=== PATIENT | female | born 1970 | race Caucasian/White ===

== ENCOUNTER 2019-05-12 07:00 | Observation (INO) ==
--- NOTE | 2019-05-05 10:55 | Anesthesiology Consultation ---
Date of Service May 05, 2019 Assessment & Plan (1) Encounter for pre-operative examination: Chart Review Chart Review: Acceptable Risk for Surgery and Patient NOT seen in Pre Admission Testing Consults Requested none History Surgery Operation Date: 05/12/19 07:00 Proposed Procedures p Laparoscopic Cholecystectomy with Possible Cholangiogram - Didier Cleveland MD, FACS Height/Weight Height: 5 ft 5 in Weight: 65.771 kg Allergies Allergy/AdvReac Type Severity Reaction Status Date / Time lisinopril AdvReac Mild Cough Verified 04/14/19 13:32 Medications Home Medications Medication Instructions Recorded Confirmed Last Taken Testosterone 1 tab PO HS 04/14/19 04/14/19 Unknown estradiol 0.025 mg TOPICAL UD 04/14/19 04/14/19 Unknown folic acid 1 mg PO QAM 04/14/19 04/14/19 Unknown omeprazole 20 mg PO QAM 04/14/19 04/14/19 Unknown Past Medical History Medical History Barretts esophagus GERD (gastroesophageal reflux disease) History of bronchitis Hypertension was on lisinopril until d/c due to cough no medications at present Osteoarthritis lower back Past Family History Family History Grandmother Diabetes Heart disease Father Hypertension Cancer Brother Hypertension Past Surgical History Surgical History H/O section 1990 H/O tubal ligation 1990 Hx of colonoscopy Hx of esophagogastroduodenoscopy S/P sinus surgery Status post total replacement of hip right 2014 Social History Smoking Status: Current every day smoker tobacco type: cigarettes Smoking cigarettes per day: 1/2 ppd Do You Dip or Chew Tobacco: No Hx Alcohol Use: Yes Alcohol type: wine alcohol intake frequency: 0-2 drinks per day Hx Substance Use: No substance use type: does not use Testing Laboratory Results Laboratory Tests 05/02/19 05/02/19 05/02/19 12:47 12:47 12:47 WBC 14.98 H Hgb 14.6 Hct 43.2 Plt Count 265 PT 11.4 INR 1.1 Sodium 137 Potassium 3.8 Chloride 106 Carbon Dioxide 24 BUN 9 Creatinine 0.99 Glucose 160 H Electrocardiogram Date: 05/02/19 Findings: + NSR @ and + NSST changes
--- NOTE | 2019-05-12 06:17 | History & Physical Report ---
Date of Service May 12, 2019 Assessment & Plan (1) Chronic cholecystitis: for laparoscopic cholecystectomy, possible cholangiogram [facility], possible observation History of Present Illness Primary Care Provider: Marlene Boyle MD pt with recurrent RUQ pain u/s- distended gb with mult gallstones recent EUS- no significant abnormal findings Allergies Allergy/AdvReac Type Severity Reaction Status Date / Time lisinopril AdvReac Mild Cough Verified 05/12/19 07:11 Home Medications Home Medications Medication Instructions Recorded Confirmed Type Testosterone 1 tab PO HS 04/14/19 05/12/19 History estradiol 0.025 mg TOPICAL UD 04/14/19 05/12/19 History folic acid 1 mg PO QAM 04/14/19 05/12/19 History omeprazole 20 mg PO QAM 04/14/19 05/12/19 History Past Med/Surg History Medical History Barretts esophagus GERD (gastroesophageal reflux disease) History of bronchitis Hypertension was on lisinopril until d/c due to cough no medications at present Osteoarthritis lower back Surgical History H/O section 1990 H/O tubal ligation 1990 Hx of colonoscopy Hx of esophagogastroduodenoscopy S/P sinus surgery Status post total replacement of hip right 2014 Family History Grandmother Diabetes Heart disease Father Hypertension Cancer Brother Hypertension Social History (Updated 04/02/19 @ 11:14 by Shelli Hunt RN) Preferred Language: [place]atian Communication Ability: Effective Butcher Head Required: No Beliefs That Will Affect Care: None marital status: Current Living Situation: Spouse Other Information That Helps Us Care for You: No Feels Safe at Home: Yes Safety Concerns: Feels Safe At This Time Smoking Status: Current every day smoker Tobacco Type: cigarettes ; Cigarettes Per Day: 1/2 ppd ; Do You Dip or Chew Tobacco: No ; Second Hand Exposure: No ; Tobacco Cessation Education Requested by Patient: No Hx Alcohol Use: Yes Alcohol type: wine Hx Substance Use: No Review of Systems All systems reviewed & are unremarkable except as noted in HPI & below Physical Exam Physical Exam: mild abd distention, soft, minimal tenderness Constitutional: well developed and well nourished; no acute distress Eyes: + anicteric sclerae Respiratory: normal respiratory effort; no respiratory distress Cardiovascular: Rate/Rhythm: regular rate Gastrointestinal (Abdomen): Percussion/Palpation: abdomen soft Musculoskeletal: Gait: normal gait Skin: no rashes, warm and dry Neurologic: awake Psychiatric: Orientation: alert
[~2019-05-12 07:00] MED LIST: LR 15ML/HR IV SCH; cefUROXime 1,500 MG in DEXTROSE 5% 100 ML IV SCH
[2019-05-12] MEDS ORDERED: ePHEDrine sulfate 50 MG/ML AMP ONE (07:06)
[2019-05-12] MEDS ORDERED: DEXAMETHASONE SOD INJ 4 MG/ML VIAL ONE ×2 (07:06→08:54)
[2019-05-12] MEDS ORDERED: MIDAZOLAM HCL 1 MG/ML 2ML VIAL ONE (07:06)
[2019-05-12] MEDS ORDERED: PROPOFOL IV EMULSION 10 MG/ML 20 ML VIAL IV ONE (07:06)
[2019-05-12] MEDS ORDERED: BUPIVACAINE 0.5 % 5 MG/1 ML MPF 30ML VIAL ONE (07:06)
[2019-05-12] MEDS ORDERED: CONRAY 60% 50 ML VIAL ONE (07:06)
[2019-05-12] MEDS ORDERED: PHENYLEPHRINE HCL 10 MG/ML VIAL ONE (07:06)
[2019-05-12] MEDS ORDERED: fentaNYL citrate 100 MCG/2 ML VIAL ONE ×2 (07:06→09:10)
[2019-05-12] MEDS ORDERED: LIDOCAINE HCL 2% 2 ML VIAL/AMP(20MG/ML) INFIL ONE (07:06)
[2019-05-12] MEDS ORDERED: GLYCOPYRROLATE 0.2 MG/ML VIAL ONE (07:06)
[2019-05-12] MEDS ORDERED: NEOSTIGMINE METHYLSULFATE 5 MG/5 ML SYR ONE (07:06)
[2019-05-12] MEDS ORDERED: SUCCINYLCHOLINE CHLORIDE 20 MG/ML 10 ML VIAL ONE (07:06)
[2019-05-12] MEDS ORDERED: ONDANSETRON INJ 2 MG/ML 2 ML VIAL ONE (07:06)
[2019-05-12] MEDS ORDERED: ROCURONIUM BROMIDE 10 MG/ML 5 ML VIAL ONE (07:09)
[2019-05-12] MEDS ORDERED: fentaNYL citrate 100 MCG/2 ML VIAL IV PRN (07:40)
[2019-05-12] MEDS ORDERED: SCOPOLAMINE 1.5 MG TDSY TD STA (07:40)
[2019-05-12] MEDS ORDERED: ONDANSETRON INJ 2 MG/ML 2 ML VIAL IV PRN ×2 (07:40→10:12)
[2019-05-12] MEDS ORDERED: ATROPINE SULFATE 0.1 MG/ML 10ML SYR IV PRN (07:40)
[2019-05-12] MEDS ORDERED: ePHEDrine sulfate 50 MG/ML AMP IV PRN (07:40)
[2019-05-12] MEDS ORDERED: SCOPOLAMINE 1.5 MG TDSY ONE (07:43)
[2019-05-12] MEDS ORDERED: ALBUTEROL HFA INHALER 8.5 GM ONE (08:06)
[2019-05-12] MEDS ORDERED: raNITIdine HCl 25 MG/ML VIAL IV ONE ×2 (08:19→08:20)
[2019-05-12] MEDS ORDERED: DiphenhydrAMINE HCL 50 MG/ML VIAL ONE (08:20)
[2019-05-12] MEDS ORDERED: LARYING-O-JET KIT (LTA) ONE (08:29)
[2019-05-12] MEDS ORDERED: METOPROLOL TARTRATE 1 MG/ML VIAL IV ONE (08:35)
[2019-05-12] MEDS ORDERED: FLOSEAL HEMOSTATIC MATRIX 10ML TOP ONE (08:51)
--- NOTE | 2019-05-12 09:01 | Post Operative Brief Note ---
PG Immediate Post Op with CF Date of Surgery May 12, 2019 Pre & Post Diagnosis Operation Date: 05/12/19 08:20 Pre-Op Diagnosis: Chronic Cholecystitis Post-Op Diagnosis: Chronic Cholecystitis cirrhosis I identified the patient and participated in the time-out.: Yes Procedure Operation Date: 05/12/19 08:20 Actual Procedures p Laparoscopic Cholecystectomy(Not Applicable) - Didier Cleveland MD, FACS Surgeon Didier Cleveland MD, FACS [employer] Gordon Aguiar Estimated Blood Loss 10 Findings Consistent with Post-Op Diagnosis Specimens Specimen Description: Permanent Specimen: A) Gallbladder and Contents
--- NOTE | 2019-05-12 09:23 | Operative Report ---
DATE OF OPERATION: 05/12/2019 NAME OF OPERATION: Laparoscopic cholecystectomy. PREOPERATIVE DIAGNOSIS: Chronic cholecystitis. POSTOPERATIVE DIAGNOSES: Chronic cholecystitis with cirrhosis. STAFF SURGEON: Didier Cleveland MD CHEESE COOKER: Juan Aguiar PA-C. ANESTHESIA: General. DESCRIPTION OF PROCEDURE: The patient was brought in the operating room and placed on the operating table in supine position. Her abdomen was prepped and draped in usual fashion. We were able to palpate her liver prior to a pneumoperitoneum. An incision was made within the umbilicus below an area of a piercing and above a large midline incision, carrying dissection down, placing a Veress needle producing pneumoperitoneum. An 11 mm port placed this level and under visualization patient did have a cirrhotic liver but no evidence of any significant portal hypertension or ascites. Gallbladder was very distended. Three 5 mm ports were placed, 1 cephalad and 2 laterally. She did have some relatively large veins involving her abdominal wall. These were avoided. At this point, the gallbladder was aspirated of bile decompressing the gallbladder and then retracting it. Dissection was carried out carefully at the stephy hepatis, identifying the cystic duct and cystic artery. These were clipped and transected. I was also able to identify a small lymphatic which was clipped. The gallbladder was then dissected away from the liver bed. There was some mild edema consistent with acute inflammation and also scar tissue consistent with chronic inflammation. Gallbladder was dissected away from the liver bed. We then used some FloSeal in the gallbladder bed, although the hemostasis was very good. The gallbladder was placed in an Endobag and then removed through the umbilical site. All ports were removed. I was able to visualize the port sites. There was no bleeding. The fascial defect at the umbilicus closed using interrupted 0 PDS suture and then the skin at the umbilicus closed using 5-0 Prolene suture. Other sites closed using subcuticular 4-0 Monocryl with a 5-0 Prolene. My recovery assistant helped with prepping, draping, removal of the gallbladder and closure of the wounds. I attest to the content of the Intraoperative Record and any orders documented therein. Any exception s are noted below.
--- NOTE | 2019-05-12 10:09 | Anesthesiology Progress Note ---
Date of Service May 12, 2019 Anesthesia Post Procedure Vital Signs Vital Signs: Temp Pulse Pulse Resp BP Pulse Ox 05/12/19 09:55 57 L 15 143/79 H 96 05/12/19 09:45 37.1 C 69 16 90/59 L 96 05/12/19 09:35 68 13 142/73 H 99 05/12/19 09:25 71 12 150/84 H 98 05/12/19 09:16 37.3 C 82 16 192/93 H 98 05/12/19 07:16 37.4 C 77 16 166/80 H 97 Pain Intensity Back: Pain Intensity: 2 Transfer of Care Handoff Completed per policy Notes Mental Status: alert / awake / arousable and participated in evaluation Patient Amnestic to Procedure: Yes Nausea / Vomiting: adequately controlled Pain: adequately controlled Airway Patency, RR, SpO2: stable & adequate BP & HR: stable & adequate Hydration State: stable & adequate Anesthetic Complications: no major complications apparent and Pt Satisfied with anesthetic care
[2019-05-12] MEDS ORDERED: HYDROCODONE/ACETAMOPHEN 5/325MG TAB PO PRN (10:12)
[2019-05-12] MEDS ORDERED: MoRPHine SULFATE 4 MG/ML 1 ML CARP\\VIAL IV PRN (10:12)
[2019-05-12] MEDS ORDERED: IBUPROFEN 600 MG TAB PO PRN (10:12)
[2019-05-12] MEDS ORDERED: PROMETHAZINE HCL 25 MG in SODIUM CHLORIDE 0.9% 50 ML IV PRN (10:12)
[2019-05-12] MEDS ORDERED: MoRPHine SULFATE 2 MG/ML CARP IV PRN (10:12)
[2019-05-12] MEDS ORDERED: PROMETHAZINE HCL 12.5 MG in SODIUM CHLORIDE 0.9% 50 ML IV PRN (10:12)
--- NOTE | 2019-05-12 10:58 | Hospitalist Consultation ---
Date of Consultation May 12, 2019 Assessment & Plan (1) Chronic cholecystitis: (2) S/P cholecystectomy: This is a 49-year-old female with a PMH of hypertension, GERD, gallstones without obstruction and tobacco use disorder who is POD#0 s/p laparoscopic cholecystectomy by Dr. Cleveland. -POD#0 s/p laparoscopic cholecystectomy by Dr. Cleveland -Pt is doing well post-operatively -Per surgical service for pain control, wound care and activities -Monitor H&H, diet per primary service (3) Hypertension: H/o HTN on lisinopril. Was discontinued in January due to developing cough. Was not started on another medication -Home BP SBP ~ 140s -Post op BP slightly elevated at 172/81 in setting of pain. Given pain medication and repeat reading 150/70 -Optimize pain control. Will also add PRN hydralazine for SBP >170 -Consider starting daily PO medication for HTN control if still elevated tomorrow (4) GERD (gastroesophageal reflux disease): Continue PPI (5) Alcohol use disorder: Endorses 3 drinks daily -PRN Ativan ordered for at risk protocol. Monitor (6) Tobacco use disorder: Smokes 1/2 ppd. Offered nicotine patch but declined (7) Menopausal symptoms: Continue home estradiol patch and progesterone HS PCP: [place] Dispo: Per primary service. Patient seen in collaboration with Dr. Salamanca. Please see addendum. Supervising Physician Co-Signing Physician Notes Pt was seen and examined. Agreed with Minerva HOLLINS exam, assessment and plan. 49-year-old female with a PMH of hypertension, GERD, gallstones without obstruction and tobacco use disorder, s/p laparoscopic cholecystectomy done today by Dr. Cleveland. We were asking to be seen her in consultation for hypertension management. Pt said that pain is control. BP improves to 144/66. She used to be on Lisinopril that was D/memo due to cough. Consider to start her on low dose of ARB or CCB in am if BP remains elevating. Continue Incentive spirometry. Will continue monitor during her hospital course. MD Cheikh History of Present Illness Reason for Consultation: Postop medical management for hypertension Attending Physician: Didier Cleveland MD, FACS History of Present Illness This is a 49-year-old female with a PMH of hypertension, GERD, gallstones without obstruction and tobacco use disorder who is POD#0 s/p laparoscopic cholecystectomy by Dr. Cleveland. Patient is feeling well postoperatively with minimal surgical site pain. Tolerated postop breakfast without any nausea or vomiting. Denies any fever, chills, lightheadedness, visual changes, chest pain or shortness of breath, dysuria, diarrhea or constipation. Last BM was yesterday. Our service was consulted to manage history of hypertension. Postop BP slightly elevated at 172/81 in setting of pain. Was previously taking lisinopril for hypertension but it was stopped 4 months ago due to patient developing cough. BP has remained stable since then with average home reading with SBP around 140. Is not on any other blood pressure medications. Allergies Allergy/AdvReac Type Severity Reaction Status Date / Time lisinopril AdvReac Mild Cough Verified 05/12/19 07:11 Home Medications Home Medications Medication Instructions Recorded Confirmed Type folic acid 1 mg PO QAM 04/14/19 05/12/19 History omeprazole 20 mg PO QAM 04/14/19 05/12/19 History dicyclomine 10 mg BID PRN 05/12/19 05/12/19 History estradiol 0.05 mg TOPICAL UD 05/12/19 05/12/19 History progesterone micronized 100 mg PO HS 05/12/19 05/12/19 History Patient History Medical History (Updated 05/12/19 @ 11:46 by Minerva Zheng PA-C) Alcohol use disorder Barretts esophagus GERD (gastroesophageal reflux disease) (Chronic) History of bronchitis Hypertension was on lisinopril until d/c due to cough no medications at present Menopausal symptoms Osteoarthritis lower back Tobacco use disorder Surgical History (Updated 05/12/19 @ 14:40 by Lexie France RN) H/O section 1990 H/O tubal ligation 1990 Hx of colonoscopy Hx of esophagogastroduodenoscopy S/P laparoscopic cholecystectomy (05/12/19) Laparoscopic cholecystectomy. 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 Beliefs That Will Affect Care: None marital status: Current Living Situation: Spouse Other Information That Helps Us Care for You: No Feels Safe at Home: Yes Safety Concerns: Feels Safe At This Time Smoking Status: Current every day smoker Tobacco Type: cigarettes ; Cigarettes Per Day: 1/2 ppd ; Do You Dip or Chew Tobacco: No ; Second Hand Exposure: No ; Tobacco Cessation Education Requested by Patient: No Hx Alcohol Use: Yes Alcohol type: wine Alcohol Intake Frequency: Daily Alcohol Intake Frequency Comment: 3 glasses wine daily Hx Substance Use: No Review of Systems Review of Systems: At least ten systems reviewed and negative except as noted in the HPI. Physical Exam Physical Exam: General Appearance: WD/WN, vitals as above, NAD, sitting up in bed, pleasant, conversing easily Head: normocephalic, atraumatic Eyes: normal inspection, PERRL, conjunctivae normal, anicteric sclerae ENT: external ear and nose normal, oropharynx normal Neck: trachea midline, no thyromegaly normal visual inspection Respiratory: lungs clear to auscultation, no wheeze, rales, rhonchi. Normal insp/exp effort, no accessory muscle use Cardiovascular: regular rate, rhythm, no murmur, normal peripheral pulses. Vessels: no JVD or carotid bruit Chest: normal inspection of chest Abdomen/GI: normal bowel sounds, soft, mild TTP in RUQ/RLQ. Small incisions without drainage or surrounding erythema, no hepatosplenomegaly Extremities/Musculoskelatal: no cyanosis or clubbing, extremities motor strength 5/5, fine tremors of bilateral hands Psychiatric: A+Ox3, euthymic affect Neurologic: PERRL, EOMI, accommodation nl, no face palsy, no dysarthria, CN's II-XI intact bilaterally and moves all extremities Skin: no rashes, normal color, warm/dry Results & Data Vital Signs (Past 12 Hours) Vital Signs Temp Pulse Pulse Resp BP BP Pulse Ox 05/12/19 10:36 36.7 C 63 17 174/76 H 98 05/12/19 10:05 36.9 C 63 18 138/66 98 05/12/19 09:55 57 L 15 143/79 H 96 05/12/19 09:45 37.1 C 69 16 90/59 L 96 05/12/19 09:35 68 13 142/73 H 99 05/12/19 09:25 71 12 150/84 H 98 05/12/19 09:16 37.3 C 82 16 192/93 H 98 05/12/19 07:16 37.4 C 77 16 166/80 H 97
[2019-05-12] MEDS ORDERED: LORazepam 1 MG TAB PO PRN (11:30)
[2019-05-12] MEDS ORDERED: HydrALAZINE 10 MG TAB PO PRN (11:52)
[2019-05-12] MEDS: SODIUM CHLORIDE 0.9% 500 ML IV SCH ×2 (14:38→22:02)
[2019-05-12] MEDS: HYDROCODONE/ACETAMOPHEN 5/325MG TAB PO PRN ×2 (14:41→22:07)
[2019-05-12] MEDS ORDERED: CHECK SCOPOLAMINE PATCH PLACEMENT SCH (16:00)
--- NOTE | 2019-05-13 07:24 | Discharge Summary ---
PRINCIPAL DIAGNOSIS: Acute and chronic cholecystitis. PROCEDURES: The patient underwent laparoscopic cholecystectomy. HISTORY OF PRESENT ILLNESS: The patient is a 49-year-old female with chronic symptoms of right upper quadrant pain consistent with biliary colic. She was brought into the hospital on 05/12/2019 where she underwent a laparoscopic cholecystectomy, which was mildly difficult secondary to the patient's very large liver and a risk for bleeding. She has done quite well overnight and is felt stable for discharge home today, to be followed in the surgical clinic within 1-2 weeks.
[2019-05-13] MEDS: HYDROCODONE/ACETAMOPHEN 5/325MG TAB PO PRN (07:32)
[2019-05-13] MEDS: SODIUM CHLORIDE 0.9% 500 ML IV SCH (07:33)
[2019-05-13 07:37] LABS: Hematocrit (blood only) 37.9 % (37-47); Hemoglobin 12.4 g/dL (12.0-16.0); Mean Corpuscular Hemoglobin 36.2 pg (25-34); Mean Corpuscular Hgb Conc 32.7 g/dL (32-36); Mean Corpuscular Volume 110.5 fL (80-100); Mean Platelet Volume 10.5 fL (7.4-10.4); Platelet Count 191 K/uL (130-400); RDW Coefficient of Variation 12.7 % (11.5-14.5); RDW Standard Deviation 50.6 fL (36.4-46.3); Red Blood Count 3.43 M/uL (4.2-5.4); White Blood Count 16.39 K/uL (4.8-10.8)
[2019-05-13 08:14] LABS: BUN Creatinine Ratio 10.5 (10-20); Calcium 9.3 mg/dl (8.5-10.1); Creatinine Clr Calc Pharmacy 89.1 ml/min; Est GFR (African American) 118.2; Potassium 3.6 mmol/L (3.5-5.1)
[2019-05-13] MEDS ORDERED: PANTOprazole 40 MG TAB PO SCH (09:00)
--- NOTE | 2019-05-13 11:12 | Anesthesiology Progress Note ---
Date of Service May 13, 2019 Anesthesia Post Procedure Vital Signs Vital Signs: Temp Pulse Resp BP Pulse Ox 05/13/19 07:18 37.0 C 74 18 123/63 95 05/13/19 04:10 36.9 C 71 16 130/73 94 05/12/19 23:35 37.0 C 93 H 16 123/63 94 05/12/19 19:31 36.9 C 82 18 148/73 H 93 05/12/19 15:42 37.1 C 71 18 127/69 93 05/12/19 13:00 37.0 C 71 16 144/66 H 95 05/12/19 12:14 37 C 71 19 147/75 H 93 05/12/19 11:26 70 18 150/70 H 97 Pain Intensity Back: Pain Intensity: 2 Notes Mental Status: alert / awake / arousable and participated in evaluation Patient Amnestic to Procedure: Yes Nausea / Vomiting: adequately controlled Pain: adequately controlled Airway Patency, RR, SpO2: stable & adequate BP & HR: stable & adequate Hydration State: stable & adequate Anesthetic Complications: no major complications apparent
== END 2019-05-13 08:10 | disposition home or self-care (01) ==
LOC: ASU 07:00 → 3W 07:00

== ENCOUNTER 2023-09-27 12:58 | Inpatient (IN) ==
[2023-09-27 13:58] LABS: Basophils # (auto) 0.03 K/uL (0.00-0.20); Basophils % (auto) 0.3 %; Eosinophils # (auto) 0.03 K/uL (0.00-0.50); Eosinophils % (auto) 0.3 %; Hematocrit (blood only) 36.7 % (37.0-47.0); Hemoglobin 11.9 g/dl (12.0-16.0); Immature Granulocytes # (auto) 0.03 K/uL (0.01-0.20); Immature Granulocytes % (auto) 0.3 %; Lymphocytes # (auto) 1.41 K/uL (1.20-3.40); Lymphocytes % (auto) 14.1 %; Mean Corpuscular Hemoglobin 27.9 pg (25.0-34.0); Mean Corpuscular Hgb Conc 32.4 g/dL (32.0-36.0); Mean Corpuscular Volume 86.2 fL (80.0-100.0); Mean Platelet Volume 10.6 fL (9.4-12.4); Monocytes # (auto) 0.71 K/uL (0.11-0.59); Monocytes % (auto) 7.1 %; Neutrophils % (auto) 77.9 %; Platelet Count 238 K/uL (130-400); RDW Coefficient of Variation 14.5 % (11.5-14.5); RDW Standard Deviation 45.3 fL (36.4-46.3); Red Blood Count 4.26 M/uL (4.20-5.40); White Blood Count 10.01 K/ul (4.8-10.8)
[2023-09-27 14:11] LABS: Pregnancy Test, Serum Negative (Negative)
[2023-09-27 14:18] LABS: BUN Creatinine Ratio 12.1 (10-20); Calcium 10.3 mg/dl (8.6-10.3); Creatinine Clr Calc Pharmacy 99.8 ml/min; Est GFR (African American) 121.1 ml/min; Est GFR (Non-African American) 104.5 ml/min
[2023-09-27] MEDS: OPTIRAY 320 100ml IV ONE (14:51)
[2023-09-27 15:02] LABS: Albumin Globulin Ratio 1.1 (0.9-2); Albumin Level 4.5 gm/dl (3.4-5.0); Bilirubin,Total 0.5 mg/dl (0.2-1.0); Total Protein 8.5 gm/dl (6.0-8.3)
--- NOTE | 2023-09-27 15:23 | CT Scan Report ---
ABDOMEN AND PELVIS CT WITH IV CONTRAST CT DOSE: 528.08 mGy.cm HISTORY: Acute abdominal pain belly pain TECHNIQUE: Multiaxial CT images of the abdomen and pelvis were performed following the IV administrat ion of 76 cc of Optiray, A dose lowering technique was utilized adhering to the principles of ALARA. COMPARISON STUDY: None. FINDINGS: Clear lung bases. No free air. Unremarkable spleen and left adrenal gland. Right adrenal gl and hypodense nodules measure up to 1.7 cm nonspecific and likely benign. Cholecystectomy. Cirrhotic liver. No suspicious hepatic mass lesions identified. Patency of the hepatic and portal veins. A few abdominal varicosities are noted. Interstitial and peripancreatic edema. Mild nonspecific dilation of the pancreatic duct measuring up to 4 mm. There is focal heterogeneity of the uncinate process measu ring approximately 2.5 cm. No acute pancreatic fluid collections. Likely reactive wall thickening of the duodenum. Mild nonspecific bilateral perinephric stranding. 10 mm cyst of the superior pole left kidney. No hyd ronephrosis. Partial distention of the urinary bladder. Heterogeneous uterus. Atherosclerosis of the aorta without aneurysm. Nonspecific retroperitoneal lymph nodes measure up to 9 mm. Periportal lymph nodes measure up to 11-12 mm. Colonic diverticulosis. No bowel obstruction. Normal appendix. No acute fracture. Left femoral head a vascular necrosis without articular collapse. Right hip arthroplasty. Severe L5-S1 with disc space na rrowing IMPRESSION: 1. Interstitial edematous pancreatitis. No acute peripancreatic fluid collections. 2. Focal heterogeneity of the uncinate process pancreas may be related to the acute pancreatitis. An underlying pancreatic mass could appear similarly and evaluation could be made with endoscopic ultras ound. 3. Cirrhosis. 4. No bowel obstruction or pneumoperitoneum. 5. Colonic diverticulosis. ACT 112: Negative or not required by law. The above report was generated using voice recognition software. It may contain grammatical, syntax o r spelling errors. Electronically signed by: Gab Carrasquillo M.D. 09/27/2023 3:22 PM
--- NOTE | 2023-09-27 15:36 | XRay Report ---
XR KUB/Abdomen 1 view CLINICAL HISTORY: belly pain TECHNIQUE: 1 view of the abdomen was obtained. Comparison: Comparison is made to CT abdomen pelvis 09/27/2023 FINDINGS: Cholecystomy clips are seen in the right upper quadrant. IV contrast in the collecting system and keesha dder. Right hip arthroplasty is seen. Degenerative changes are seen in the left hip joint. The bowel gas pattern is nonobstructive. Small stool burden is seen. IMPRESSION: Nonobstructive bowel gas pattern. ACT 112: Negative or not required by law. Electronically signed by: Elie Ordonez M.D. 09/27/2023 3:35 PM
--- NOTE | 2023-09-27 15:44 | Electrocardiogram Report ---
Test Reason : Blood Pressure : / mmHG Vent. Rate : 083 BPM Atrial Rate : 083 BPM P-R Int : 160 ms QRS Dur : 078 ms QT Int : 352 ms P-R-T Axes : 085 094 077 degrees QTc Int : 413 ms Normal sinus rhythm Rightward axis Poor R wave progression, consider anterior MN vs. lead placement vs. LVH Abnormal ECG When compared with ECG of 30-AUG-2020 06:25, No significant change was found Confirmed by Abdoul King ([id number]) on 09/27/2023 3:43:43 PM Referred By: Confirmed By:Abdoul King
[2023-09-27] MEDS: ACETAMINOPHEN 1,000 MG/100 ML VIAL IV STA (17:39)
[2023-09-27] MEDS: SODIUM CHLORIDE 0.9% 1,000 ML IV ONE (17:39)
--- NOTE | 2023-09-27 18:13 | Emergency Department Note ---
Impression & Plan Acute pancreatitis, Alcohol use disorder ED Provider Note CHIEF COMPLAINT: Abdominal pain HISTORY OF PRESENTING ILLNESS: This is a 53-year-old female who presents to the emergency department by private vehicle with complaint of abdominal pain that has been getting progressively worse over the past week. Patient states the pain is mostly in her upper abdomen, is sharp and severe, and she rates the pain 7/10. She has not tried anything for her pain. She does note similar pain that would come and go over the past few months, but it always resolved on its own and it was never this severe. She has not had any fevers or chills. She does note some nausea and vomiting this morning and has not been able to keep anything down today. She denies diarrhea or changes in bowel movements. She does note that she is a heavy alcohol user and drinks alcohol most days. She reports drinking vodka and white claw, most days she will drink a sixpack of white claw in 1 day. Her last drink was 4 PM yesterday. She denies any history of withdrawal symptoms or seizures associated with her alcohol use. She does not have any history of pancreatitis. History of cholecystectomy. REVIEW OF SYSTEMS: A complete 10 point review of systems was reviewed with the patient with pertinent positives and negatives as per history of present illness. All else were negative. PAST MEDICAL HISTORY: Hypertension, osteoarthritis, De La Rosa's esophagus, alcohol use disorder, GERD, history of cholecystectomy, right total hip replacement, tubal ligation SOCIAL HISTORY: Lives at home, she is a current everyday smoker, daily alcohol use ALLERGIES: Reviewed in chart with the patient PHYSICAL EXAM: CONSTITUTIONAL: Pleasant and cooperative. Nontoxic-appearing and in no acute distress. Well appearing and well nourished. HEENT: Normocephalic, atraumatic. Pharynx normal. Tacky mucous membranes NECK: Supple, full active range of motion without discomfort. RESPIRATORY: Clear to auscultation bilaterally with no wheezing, crackles, rhonchi or stridor. Equal expansion bilaterally. CARDIOVASCULAR: Regular rate and rhythm with no murmurs, rubs or gallops. Normal peripheral perfusion. No edema. GASTROINTESTINAL: Tender to palpation in the epigastric and left upper quadrant region, soft and nondistended. No palpable masses or HSM. Bowel sounds present in all quadrants. No CVA tenderness bilaterally. MUSCULOSKELETAL: Full range of motion of all joints without discomfort. INTEGUMENTARY: No rash or other significant dermatologic conditions noted. NEUROLOGIC: Alert and oriented X 4 with normal affect. Normal strength and sensation in all 4 extremities. Normal speech. Normal gait observed. ED COURSE AND MEDICAL DECISION MAKING: CC: Patient presenting with complaint of abdominal pain DIFFERENTIAL DIAGNOSIS: Includes, but not limited to pancreatitis, choledocholithiasis, gastritis, peptic ulcer disease, GERD, esophagitis, gastroenteritis, foodborne illness, small bowel obstruction, cardiac causes, among others. INTERPRETATION OF LABS: No leukocytosis, mild anemia, normal platelets, no significant electrolyte abnormalities, normal renal function, normal T. bili and ALT, mildly elevated AST and alk phos, significantly elevated lipase. Serum negative. EKG: Indication was abdominal pain. Shows normal sinus rhythm with a rate of 83 bpm, rightward axis, no ST elevation or depression, no ectopy, no significant change when compared to previous EKG from 08/30/2020 by my interpretation. MEDICATION RECONCILIATION: I attest that I have personally reviewed the patient's current medication list. INITIAL VITAL SIGNS REVIEW: I reviewed the patient's initial vital signs and interpret them as follows: T: Afebrile; BP: Hypertensive; HR: Within normal limit; RR: Within normal limits; Pulse Ox: Within normal limits on room air. MDM SUMMARY: Initial orders placed by nursing staff under critical pathways due to high volume and long wait times. Once the patient was placed in an exam room, the patient was evaluated by me at bedside, history and physical exam performed. Patient is alert and oriented, afebrile and in no acute distress, but appears uncomfortable from pain. She is noted to be hypertensive. Abdominal tenderness in the epigastric and left upper region, no acute abdomen. Labs and imaging reviewed, notable for significant elevation of lipase and findings of acute pancreatitis on CT. Additional orders were placed for IV fluid bolus and IV morphine for pain. The patient was updated on all results and plan for admission, all questions were answered to the best my ability and the patient was agreeable to this plan. I spoke on the phone with Astrid Carrillo PA-C with the [facility] service, who agrees to evaluate the patient for admission. Patient was stable at the time of admission. Patient discussed with Dr. Yusuf, ED attending, who agrees with my assessment, plan, and disposition. The chart was completed utilizing Dragon Speech voice recognition software. Grammatical errors, random word insertions, pronoun errors, and incomplete sentences are an occasional consequence of this system due to software limitations, ambient noise, and hardware issues. Any formal questions or concerns about the content, text, or information contained within the body of this dictation should be directly addressed to the nurse practitioner for clarification. Past Med/Surg History Problem List (Updated 09/27/23 @ 21:39 by LUDWIG Bush) Alcohol use disorder (Acute) Acute pancreatitis (Acute) Pancreatitis Inflamed seborrheic keratosis Status post laparoscopic cholecystectomy Menopausal symptoms S/P cholecystectomy Alcohol use disorder GERD (gastroesophageal reflux disease) (Chronic) Tobacco use disorder Chronic cholecystitis (Chronic) Hypertension (Chronic) Medical History Alcohol use disorder Barretts esophagus GERD (gastroesophageal reflux disease) History of bronchitis Hypertension was on lisinopril until d/c due to cough no medications at present Menopausal symptoms Osteoarthritis lower back Tobacco use disorder Surgical History H/O section 1990 H/O tubal ligation 1990 Hx of colonoscopy Hx of esophagogastroduodenoscopy S/P laparoscopic cholecystectomy (05/12/19) Laparoscopic cholecystectomy. 05-12-19 S/P sinus surgery Status post total replacement of hip right 2014 Family History Grandmother Diabetes Heart disease Father Hypertension Cancer Brother Hypertension Social History Smoking Status: Current every day smoker Tobacco Type: Cigarettes Cigarettes Per Day: 10; Second Hand Exposure: No; Do You Dip or Chew Tobacco: No; Hx Alcohol Use: Yes Alcohol type: wine Alcohol Intake Frequency Comment: 3 glasses wine daily Hx Substance Use: No Preferred Language: Polish Communication Ability: Effective Visual Impairment: No Limitations Metal Cnc Operator Required: No Beliefs That Will Affect Care: None marital status: Current Living Situation: Spouse Feels Safe at Home: Yes Assistive Devices: None Allergies Allergies Allergy/AdvReac Type Severity Reaction Status Date / Time lisinopril AdvReac Mild Cough Verified 09/27/23 19:12 Home Meds Home Medications Medication Instructions Recorded Confirmed lactase 3,000 unit tablet (Lactaid) 3,000 unit PO AC PRN dairy 09/27/23 09/27/23 consumption pantoprazole 40 mg tablet,delayed 40 mg PO QAM 09/27/23 09/27/23 release Results & Data (ED) Vital Signs Vital Signs - 24 hr 09/27/23 13:15 09/27/23 17:36 Temperature 36.3 C L Temperature Source Temporal Artery Scan Pulse Rate 81 Pulse Rate [Finger] 81 Pulse Rhythm Regular Pulse Strength Normal Respiratory Rate 20 15 Respiratory Effort / Characteristics Non-Labored Spontaneous Respiratory Depth Normal Blood Pressure 192/90 H Blood Pressure [Right Arm] 209/91 H Blood Pressure Mean 124 Blood Pressure Mean [Right Arm] 130 Blood Pressure Position Sitting Pulse Oximetry 99 99 Oxygen Delivery Method Room Air Sepsis Recent Fever Within 48 Hours No Sepsis New/Unexplained Change in Mental Status N/A Sepsis Action Taken by Nursing No Action Required Laboratory Data 09/27/23 13:32 09/27/23 13:32 Lab Results 09/27/23 Range/Units 13:32 WBC 10.01 (4.8-10.8) K/ul RBC 4.26 (4.20-5.40) M/uL Hgb 11.9 L (12.0-16.0) g/dl Hct 36.7 L (37.0-47.0) % MCV 86.2 (80.0-100.0) fL MCH 27.9 (25.0-34.0) pg MCHC 32.4 (32.0-36.0) g/dL RDW Std Deviation 45.3 (36.4-46.3) fL RDW Coeff of Dionte 14.5 (11.5-14.5) % Plt Count 238 (130-400) K/uL MPV 10.6 (9.4-12.4) fL Immature Gran % (Auto) 0.3 % Neut % (Auto) 77.9 % Lymph % (Auto) 14.1 % Stephenson % (Auto) 7.1 % Eos % (Auto) 0.3 % Baso % (Auto) 0.3 % Neut # (Auto) 7.80 H (1.40-6.50) K/uL Lymph # (Auto) 1.41 (1.20-3.40) K/uL Stephenson # (Auto) 0.71 H (0.11-0.59) K/uL Eos # (Auto) 0.03 (0.00-0.50) K/uL Baso # (Auto) 0.03 (0.00-0.20) K/uL Immature Gran # (Auto) 0.03 (0.01-0.20) K/uL Sodium 135 L (136-145) mmol/L Potassium 4.0 (3.5-5.1) mmol/L Chloride 99 (98-107) mmol/L Carbon Dioxide 29 (21-32) mmol/L Anion Gap 7 (3-11) BUN 7 (6-23) mg/dl Creatinine 0.58 L (0.6-1.2) mg/dl Est Cr Clr Drug Dosing 99.8 ml/min Est GFR ( Amer) 121.1 ml/min Est GFR (Non-Af Amer) 104.5 ml/min BUN/Creatinine Ratio 12.1 (10-20) Glucose 162 H (70-99(Fasting)) mg/dl Calcium 10.3 (8.6-10.3) mg/dl Total Bilirubin 0.5 (0.2-1.0) mg/dl AST 48 H (13-39) U/L ALT 44 (7-52) U/L Alkaline Phosphatase 130 H (34-104) U/L Total Protein 8.5 H (6.0-8.3) gm/dl Albumin 4.5 (3.4-5.0) gm/dl Globulin 4.0 (2.5-4.0) gm/dl Albumin/Globulin Ratio 1.1 (0.9-2) Lipase 68115 H (11-82) U/L HCG, Qual Negative (Negative) Administered Medications Discontinued Medications Acetaminophen (Ofirmev) 1,000 mg in 100 mls @ 400 mls/hr IV NOW STA Stop: 09/27/23 17:41 Last Infusion: 09/27/23 18:36 Dose: Infused Documented By: Admin: 09/27/23 17:39 Dose: 400 mls/hr Documented By: ALISA Sodium Chloride (Nss) 1,000 mls @ 999 mls/hr IV .Q1H1M ONE Stop: 09/27/23 18:32 Last Infusion: 09/27/23 18:36 Dose: Infused Documented By: Admin: 09/27/23 17:39 Dose: 999 mls/hr Documented By: ALISA Ioversol (Optiray 320 100ml) 76 ml IV ONCE ONE Stop: 09/27/23 14:52 Last Admin: 09/27/23 14:51 Dose: 76 ml Documented By: HODAN Morphine Sulfate (Morphine Sulfate 4 Mg/Ml 1 Ml Carp\Vial) 4 mg IV NOW STA Stop: 09/27/23 17:55 Last Admin: 09/27/23 18:18 Dose: 4 mg Documented By: ALISA Imaging Data Radiologist's Impression: KUB X-Ray 09/27/23 13:18 XR KUB/Abdomen 1 view CLINICAL HISTORY: belly pain TECHNIQUE: 1 view of the abdomen was obtained. Comparison: Comparison is made to CT abdomen pelvis 09/27/2023 FINDINGS: Cholecystomy clips are seen in the right upper quadrant. IV contrast in the collecting system and bladder. Right hip arthroplasty is seen. Degenerative changes are seen in the left hip joint. The bowel gas pattern is nonobstructive. Small stool burden is seen. IMPRESSION: Nonobstructive bowel gas pattern. ACT 112: Negative or not required by law. Electronically signed by: Elie Ordonez M.D. 09/27/2023 3:35 PM Abdomen/Pelvis CT 09/27/23 14:[address] WITH IV CONTRAST CT DOSE: 528.08 mGy.cm HISTORY: Acute abdominal pain belly pain TECHNIQUE: Multiaxial CT images of the abdomen and pelvis were performed following the IV administration of 76 cc of Optiray, A dose lowering technique was utilized adhering to the principles of ALARA. COMPARISON STUDY: None. FINDINGS: Clear lung bases. No free air. Unremarkable spleen and left adrenal gland. Right adrenal gland hypodense nodules measure up to 1.7 cm nonspecific and likely benign. Cholecystectomy. Cirrhotic liver. No suspicious hepatic mass lesions identified. Patency of the hepatic and portal veins. A few abdominal varicosities are noted. Interstitial and peripancreatic edema. Mild nonspecific dilation of the pancreatic duct measuring up to 4 mm. There is focal heterogeneity of the uncinate process measuring approximately 2.5 cm. No acute pancreatic fluid collections. Likely reactive wall thickening of the duodenum. Mild nonspecific bilateral perinephric stranding. 10 mm cyst of the superior pole left kidney. No hydronephrosis. Partial distention of the urinary bladder. Heterogeneous uterus. Atherosclerosis of the aorta without aneurysm. Nonspecific retroperitoneal lymph nodes measure up to 9 mm. Periportal lymph nodes measure up to 11-12 mm. Colonic diverticulosis. No bowel obstruction. Normal appendix. No acute fracture. 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 Right hip arthroplasty. Severe L5-S1 with disc space narrowing IMPRESSION: 1. Interstitial edematous pancreatitis. No acute peripancreatic fluid collections. 2. Focal heterogeneity of the uncinate process pancreas may be related to the acute pancreatitis. An underlying pancreatic mass could appear similarly and evaluation could be made with endoscopic ultrasound. 3. Cirrhosis. 4. No bowel obstruction or pneumoperitoneum. 5. Colonic diverticulosis. ACT 112: Negative or not required by law. The above report was generated using voice recognition software. It may contain grammatical, syntax or spelling errors. Electronically signed by: Gab Carrasquillo M.D. 09/27/2023 3:22 PM Discharge Plan Visit Data Chief Complaint: Abdominal Pain Stated Complaint: ABD PAIN ED Provider: Mica Yusuf ED Midlevel Provider: Yee High Discharge Problem: Acute pancreatitis, Alcohol use disorder Patient Disposition: Admitted As Inpatient Condition: Good Discharge Instructions Interventions: ED Discharge Assessment Last Done: 09/27/23 22:12 Discharge Problem: Acute pancreatitis Qualifiers: Pancreatitis type: alcohol induced Acute pancreatitis complication: unspecified Qualified Code(s): K85.20 - Alcohol induced acute pancreatitis without necrosis or infection
[2023-09-27] MEDS: MoRPHine SULFATE 4 MG/ML 1 ML CARP\\VIAL IV STA (18:18)
--- NOTE | 2023-09-27 18:21 | History & Physical Report ---
Date of Service September 27, 2023 Assessment & Plan (1) Pancreatitis: (2) Alcohol use disorder: (3) Hypertension: (4) GERD (gastroesophageal reflux disease): (5) Tobacco use disorder: Plan: Acute Pancreatitis - Admit to [facility] tele - [place] [id number] [place] admission, AST 48, Alk phos 130, ALT 44 - Keep NPO, continue LR at 125ml/hr - Cont IV pepcid BID - Allow morphine IV for pain control - Encourage alcohol cessation - Withdrawal protocol ordered as pt typically drinks 6pack hard seltzer daily, last drink was 4 pm on 09/25 Alcohol use - Gabapentin withdrawal protocol as above Prediabetes - Check A1C and lipid panel with am labs HTN - BP elevated at 209/91, not on antihypertensive medications at baseline, previously on lisionpril but developed a cough (taken off years ago)-- may require antihypertensives upon discharge - Possibly due to pain presently Tobacco use - Cessation encouraged, currently smokes 1/2 ppd - nicotine patch refused, she has Nicorette gum with her GERD Barretts Esophagus- - Hx of EGD and Cscope, followed with [facility], reports barretts previously was cleared. - Consider GI consult, will need set up with GI as outpatient - At home takes protonix 40 mg daily -- use famotidine IV here DVT ppx: teds, scds Lines: 1 PIV Diet: NPO CODE: FULL Dispo: From home, likely to remain in the hospital x 1-2 days A total of 65 minutes were spent with greater than 50% of that time face to face with the patient, personally reviewing all current laboratories, imaging studies, past medication reconciliation, outpatient chart review, and discussion with specialists to collaborate care for the patient with attending. Please see attending documentation for corrections and/or additions. History of Present Illness Chief Complaint: Abdominal pain Primary Care Provider: Ailyn Woods MD This is a 53 yo F with PMHx of Barretts esophagus, GERD, prediabetes, hx HTN, alcohol use, tobacco use with 1/2 ppd, HTN previously on Lisinopril but taken off due to cough. Pt presents with 1 week of worsening abdominal pain. She ntoes few months ago had generalized abdominal pain and stopped drinking vodka at that time. She is still drinking white claw hard seltzer (#6) daily. Pt states it has been having waxing and waning abdominal pain and into her back. She has been doing manual labor with flower beds recently and thought maybe it was due to such. Pt admits to nausea but has been vomiting today. She denies fever, but admits to sweats and chills. No diarrhea. Her BP has been ok at home, and checks it at home routinely. Last night she took 2 ibuprofen to help with pain. Current pain is 6/10 Pt last drank alcohol yesterday at 4 pm, routinely drinks white claw 6 pack daily, and one shot of vodka yesterday. Family Hx: Father - adenocarcinoma lung cancer Surgical Hx: R hip repacement Cholecystectomy Social Hx: 1/2 pack cigarettes daily, alcohol use as above, denies illicit drug use Allergies Allergy/AdvReac Type Severity Reaction Status Date / Time lisinopril AdvReac Mild Cough Verified 09/27/23 19:12 Home Medications Medication Instructions Recorded Confirmed Type lactase 3,000 unit tablet (Lactaid) 3,000 unit PO AC PRN dairy 09/27/23 09/27/23 History consumption pantoprazole 40 mg tablet,delayed 40 mg PO QAM 09/27/23 09/27/23 History release Past Med/Surg History Problem List (Updated 09/27/23 @ 18:16 by Ashleigh Carrillo PA-C) Pancreatitis Inflamed seborrheic keratosis Status post laparoscopic cholecystectomy Menopausal symptoms S/P cholecystectomy Alcohol use disorder GERD (gastroesophageal reflux disease) (Chronic) Tobacco use disorder Chronic cholecystitis (Chronic) Hypertension (Chronic) Medical History Alcohol use disorder Barretts esophagus GERD (gastroesophageal reflux disease) History of bronchitis Hypertension was on lisinopril until d/c due to cough no medications at present Menopausal symptoms Osteoarthritis lower back Tobacco use disorder Surgical History H/O section 1990 H/O tubal ligation 1990 Hx of colonoscopy Hx of esophagogastroduodenoscopy S/P laparoscopic cholecystectomy (05/12/19) Laparoscopic cholecystectomy. 05-12-19 S/P sinus surgery Status post total replacement of hip right 2014 Family History Grandmother Diabetes Heart disease Father Hypertension Cancer Brother Hypertension Social History Smoking Status: Current every day smoker Tobacco Type: Cigarettes Cigarettes Per Day: 10; Second Hand Exposure: No; Do You Dip or Chew Tobacco: No; Hx Alcohol Use: Yes Alcohol type: wine Alcohol Intake Frequency Comment: 3 glasses wine daily Hx Substance Use: No Preferred Language: Tajik Communication Ability: Effective Visual Impairment: No Limitations Motor Equipment Sergeant Required: No Beliefs That Will Affect Care: None marital status: Current Living Situation: Spouse Feels Safe at Home: Yes Assistive Devices: None Review of Systems Review of Systems: Constitutional: No fever, + sweats or chills Eyes: No diplopia, no worsening or blurred vision ENT: normal hearing, no trouble swallowing Respiratory: No cough, sputum, dyspnea at rest or on exertion Cardiovascular: No chest pain, tightness or palpitations Abdomen: As per HPI, +pain, nausea, vomiting. no diarrhea or constipation Musculoskeletal: No joint pain, calf pain, swelling Neurologic: No weakness, numbness/tingling, or balance problems Psychiatric: No anxiety or depression Skin: No rash or itch Physical Exam Physical Exam: General: awake, alert, no apparent distress, thin white female, BMI 21 Head: Normocephalic, atraumatic ENT: PERRL, EOMI, no pharyngeal exudate, mucous membranes moist Chest: Clear to auscultation, on room air, no adventitious breath sounds Cardiac: Regular rate and rhythm, no murmur, no JVD, normal peripheral pulses, good capillary refill Abdominal: NABS x 4 quadrants, soft, nondistended, +epigastric tenderness with palpation, no rebound or guarding Extremities: Normal inspection, no peripheral edema or erythema, calfs nontender to palpation Psych: Normal mood and affect Neuro: AAO x 3, strength intact bilaterally and rated 5/5, no motor deficits, speech is clear, no peripheral sensory deficits Results & Data Results & Data Vital Signs (Past 12 Hours) Vital Signs Temp Pulse Pulse Resp BP BP Pulse Ox 09/27/23 17:36 81 15 209/91 H 99 09/27/23 13:15 36.3 C L 81 20 192/90 H 99 O2 Del Method 09/27/23 17:36 09/27/23 13:15 Room Air Laboratory Results 09/27/23 13:32 WBC 10.01 RBC 4.26 Hgb 11.9 L Hct 36.7 L MCV 86.2 MCH 27.9 MCHC 32.4 RDW Std Deviation 45.3 RDW Coeff of Dionte 14.5 Plt Count 238 MPV 10.6 Immature Gran % (Auto) 0.3 Neut % (Auto) 77.9 Lymph % (Auto) 14.1 Schley % (Auto) 7.1 Eos % (Auto) 0.3 Baso % (Auto) 0.3 Neut # (Auto) 7.80 H Lymph # (Auto) 1.41 Schley # (Auto) 0.71 H Eos # (Auto) 0.03 Baso # (Auto) 0.03 Immature Gran # (Auto) 0.03 Sodium 135 L Potassium 4.0 Chloride 99 Carbon Dioxide 29 Anion Gap 7 BUN 7 Creatinine 0.58 L Est Cr Clr Drug Dosing 99.8 Est GFR ( Amer) 121.1 Est GFR (Non-Af Amer) 104.5 BUN/Creatinine Ratio 12.1 Glucose 162 H Calcium 10.3 Total Bilirubin 0.5 AST 48 H ALT 44 Alkaline Phosphatase 130 H Total Protein 8.5 H Albumin 4.5 Globulin 4.0 Albumin/Globulin Ratio 1.1 Lipase 08259 H HCG, Qual Negative Diagnostic Findings KUB X-Ray 09/27/23 13:18 XR KUB/Abdomen 1 view CLINICAL HISTORY: belly pain TECHNIQUE: 1 view of the abdomen was obtained. Comparison: Comparison is made to CT abdomen pelvis 09/27/2023 FINDINGS: Cholecystomy clips are seen in the right upper quadrant. IV contrast in the collecting system and bladder. Right hip arthroplasty is seen. Degenerative changes are seen in the left hip joint. The bowel gas pattern is nonobstructive. Small stool burden is seen. IMPRESSION: Nonobstructive bowel gas pattern. ACT 112: Negative or not required by law. Electronically signed by: Elie Ordonez M.D. 09/27/2023 3:35 PM Abdomen/Pelvis CT 09/27/23 14:[address] WITH IV CONTRAST CT DOSE: 528.08 mGy.cm HISTORY: Acute abdominal pain belly pain TECHNIQUE: Multiaxial CT images of the abdomen and pelvis were performed following the IV administration of 76 cc of Optiray, A dose lowering technique was utilized adhering to the principles of ALARA. COMPARISON STUDY: None. FINDINGS: Clear lung bases. No free air. Unremarkable spleen and left adrenal gland. Right adrenal gland hypodense nodules measure up to 1.7 cm nonspecific and likely benign. Cholecystectomy. Cirrhotic liver. No suspicious hepatic mass lesions identified. Patency of the hepatic and portal veins. A few abdominal varicosities are noted. Interstitial and peripancreatic edema. Mild nonspecific dilation of the pancreatic duct measuring up to 4 mm. There is focal heterogeneity of the uncinate process measuring approximately 2.5 cm. No acute pancreatic fluid collections. Likely reactive wall thickening of the duodenum. Mild nonspecific bilateral perinephric stranding. 10 mm cyst of the superior pole left kidney. No hydronephrosis. Partial distention of the urinary bladder. Heterogeneous uterus. Atherosclerosis of the aorta without aneurysm. Nonspecific retroperitoneal lymph nodes measure up to 9 mm. Periportal lymph nodes measure up to 11-12 mm. Colonic diverticulosis. No bowel obstruction. Normal appendix. No acute fracture. 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 Right hip arthroplasty. Severe L5-S1 with disc space narrowing IMPRESSION: 1. Interstitial edematous pancreatitis. No acute peripancreatic fluid collections. 2. Focal heterogeneity of the uncinate process pancreas may be related to the acute pancreatitis. An underlying pancreatic mass could appear similarly and evaluation could be made with endoscopic ultrasound. 3. Cirrhosis. 4. No bowel obstruction or pneumoperitoneum. 5. Colonic diverticulosis. ACT 112: Negative or not required by law. The above report was generated using voice recognition software. It may contain grammatical, syntax or spelling errors. Electronically signed by: Gab Carrasquillo M.D. 09/27/2023 3:22 PM Code Status & VTE Plan Code Status Full code - discussed with pt at bedside Supervising Physician Co-Signing Physician Notes Patient is a 53-year-old female with history of De La Rosa's esophagus, prediabetes, tobacco and alcohol use disorder and other medical problems presents with history of worsening abdominal pain since 1 week duration. She admits to drinking alcohol on daily basis. She admits to have an episode of nausea vomiting today. Also she took 2 ibuprofen yesterday for pain control. Please review HPI for complete details of presentation. I personally reviewed blood work. Hemoglobin 11.9, hematocrit 36.7, sodium 135, creatinine 0.58, glucose 162, calcium 10.3, AST 48, ALT 44, alkaline phosphatase 130, lipase [address]99. CT abdomen showed findings suggestive of interstitial edematous pancreatitis. Also noted focal heterogeneity of the uncinate process of pancreas likely related to acute pancreatitis, underlying pancreatic mass could appear similar. Findings suggestive of cirrhosis, colonic diverticulosis noted. EKG showed normal sinus rhythm, poor R wave progression, QTc 413. Physical Exam: Vitals signs as noted above General Appearance: Thin, no apparent distress Head: normocephalic, Atraumatic Eyes: normal inspection, EOMI Neck: supple, Trachea midline Respiratory/Chest: Normal breath sounds, CTA, No accessory muscle use Cardiovascular: S1, S2, Soft murmur Abdomen/GI:Soft, epigastric tender, Bowel sounds present Extremities/Musculoskeletal:normal inspection, no edema Neurologic/Psych:AAOX3, grossly no focal neurological deficits Skin: normal color, warm Acute alcoholic pancreatitis Bowel rest, IV fluids, pain control GI consulted May need outpatient endoscopic ultrasound for further evaluate pancreas to rule out mass/malignancy Check lipid panel Hypertensive urgency Likely situational secondary to pain IV hydralazine as needed Need to add antihypertensives if blood pressure remains persistently elevated Alcohol use disorder Counseled to quit drinking Thiamine, folic acid Started on gabapentin protocol I personally interviewed and examined at bedside. Patient's care is coordinated with Ashleigh Carrillo PA-C. I have reviewed the advanced practitioner's documentation, and I agree with plan of care. Please refer to the documentation above for details of patient's presentation and for discussion of other issues. I spent a total of25 minutes coordinating, documenting, and providing care for this patient excluding time spent in the performance of separately billed services.
[2023-09-27] MEDS ORDERED: POLYETHYLENE (MIRALAX) 17 GM PACK PO PRN (22:38)
[2023-09-27] MEDS ORDERED: GABAPENTIN 1200MG ALCOHOL WITHDRAWAL LOAD PO STA (22:38)
[2023-09-27] MEDS ORDERED: ONDANSETRON INJ 2 MG/ML 2 ML VIAL IV PRN (22:38)
[2023-09-27] MEDS ORDERED: MoRPHine SULFATE 2 MG/ML CARP IV PRN (22:38)
[2023-09-27] MEDS ORDERED: LORazepam 1 MG in SYRINGE 0.5 ML IV PRN (22:38)
[2023-09-27] MEDS ORDERED: hydrALAZINE HCL 20 MG/ML VIAL IV PRN (22:38)
[2023-09-27] MEDS: MULTI-VITAMIN INFUSION 10 ML, THIAMINE HCL 100 MG, FOLIC ACID 1 MG in SODIUM CHLORIDE 0... IV ONE (23:29)
[2023-09-27] MEDS: FAMOTIDINE 20MG IV PUSH 20 MG/5 ML SYR IV SCH (23:29)
[2023-09-27] MEDS: GABAPENTIN 600 MG TAB PO ONE (23:29)
[2023-09-27] MEDS: ACETAMINOPHEN 325 MG TAB PO PRN (23:41)
[2023-09-28] MEDS: LACTATED RINGER'S 1,000 ML IV SCH (00:04)
[2023-09-28 04:02] LABS: Appearance Urine Clear (Clear); Bilirubin Urine Negative (Negative); Blood Urine Negative (Negative); Color Urine Yellow; Glucose Urine UA Negative (Negative); Ketones Urine Negative (Negative); Leukocyte Esterase Urine Negative (Negative); Nitrite Urine Negative (Negative); Protein Urine Negative (Negative); Specific Gravity Urine 1.019 (1.000-1.030); Urobilinogen Urine Negative (Negative); pH Urine 6.5 (4.5-7.5)
[2023-09-28] MEDS: GABAPENTIN 600 MG TAB PO SCH ×2 (05:42→19:37)
[2023-09-28 06:36] LABS: Hematocrit (blood only) 29.2 % (37.0-47.0); Hemoglobin 9.3 g/dl (12.0-16.0); Mean Corpuscular Hemoglobin 27.8 pg (25.0-34.0); Mean Corpuscular Hgb Conc 31.8 g/dL (32.0-36.0); Mean Corpuscular Volume 87.2 fL (80.0-100.0); Platelet Count 163 K/uL (130-400); RDW Coefficient of Variation 14.6 % (11.5-14.5); RDW Standard Deviation 46.6 fL (36.4-46.3); Red Blood Count 3.35 M/uL (4.20-5.40); White Blood Count 5.28 K/ul (4.8-10.8)
[2023-09-28 07:13] LABS: Estimated Average Glucose 134 mg/dl; Hemoglobin A1C 6.3 % (4.5-5.6)
[2023-09-28 07:15] LABS: Albumin Globulin Ratio 1.1 (0.9-2); Albumin Level 3.4 gm/dl (3.4-5.0); BUN Creatinine Ratio 13.7 (10-20); Bilirubin,Total 0.4 mg/dl (0.2-1.0); Chol HDL Ratio 2.3 (0-5); Creatinine Clr Calc Pharmacy 113.5 ml/min; Est GFR (African American) 126.3 ml/min; Globulin 3.1 gm/dl (2.5-4.0); Magnesium 1.7 mg/dl (1.7-2.4); Potassium 3.7 mmol/L (3.5-5.1); Total Protein 6.5 gm/dl (6.0-8.3)
[2023-09-28] MEDS: FOLIC ACID 1 MG TAB PO SCH (08:02)
[2023-09-28] MEDS: THIAMINE HCL 100 MG TAB PO SCH (08:02)
--- NOTE | 2023-09-28 10:06 | Gastrointestinal Consultation ---
Date of Consultation September 28, 2023 Assessment & Plan (1) Acute pancreatitis: (2) Alcohol use disorder: Plan Patient is a 53 year old female admitted with pancreatitis. Imaging also concerning for possible pancreatic mass. she has been feeling better since admission. - continue with IVF, pain control. - patient did not feel like advancing diet just yet. - recommend working on ceasing ETOH use. - given the questionable findings on CT, would recommend she follow up with her regular GI group at [facility] on discharge and consider EUS as outpatient. Supervising Physician Co-Signing Physician Notes Agree with MEGAN Chatman as above Interviewed and examined patient and agree with above Abd: Soft, NT, ND, +BS Continue current therapy and supportive care Will need outpatient EUS with [facility] who is her primary GI team History of Present Illness Reason for Consultation: acute pancreatitis, pancreatic mass Requesting Physician: Humza Hamilton MD Attending Physician: Candace Dotson MD History of Present Illness Patient is a 53 year old female with past medical history of Barretts esophagus, GERD, prediabetes, hx HTN, alcohol use, tobacco use with 1/2 ppd, HTN, who presented to [facility] ED on 09/26 with complaints of 1 week of abdominal pain. She tells me she uses alcohol heavily for about 20 years. Currently has been drinking about 6 white claws a day as well as shot of vodka. Upon evaluation in the ED she was found to have pancreatitis on CT. She tells me that this is the first time this was diagnosed. CT also suggestive of cirrhosis and area in the uncinate process concerning for a possible pancreatic mass. she was admitted and she tells me that since then her symptoms are significantly improved. she tells me pain is better. no appetite as of yet. rest of GI ros unremarkable. She tells me she follows her GI care typically with [facility] and had EGD and colonoscopy done a few years back. I do not have these records for review. 09/26 lipase [id number] 09/[address] 09/26 1.Interstitial edematous pancreatitis. No acute peripancreatic fluid collections. 2. Focal heterogeneity of the uncinate process pancreas may be related to the acute pancreatitis. An underlying pancreatic mass could appear similarly and evaluation could be made with endoscopic ultrasound. 3. Cirrhosis. 4. No bowel obstruction or pneumoperitoneum. 5. Colonic diverticulosis. Allergies Allergy/AdvReac Type Severity Reaction Status Date / Time lisinopril AdvReac Mild Cough Verified 09/27/23 19:12 Home Medications Medication Instructions Recorded Confirmed Type lactase 3,000 unit tablet (Lactaid) 3,000 unit PO AC PRN dairy 09/27/23 09/27/23 History consumption pantoprazole 40 mg tablet,delayed 40 mg PO QAM 09/27/23 09/27/23 History release Patient History Medical History Alcohol use disorder Barretts esophagus GERD (gastroesophageal reflux disease) History of bronchitis Hypertension was on lisinopril until d/c due to cough no medications at present Menopausal symptoms Osteoarthritis lower back Tobacco use disorder Surgical History H/O section 1990 H/O tubal ligation 1990 Hx of colonoscopy Hx of esophagogastroduodenoscopy S/P laparoscopic cholecystectomy (05/12/19) Laparoscopic cholecystectomy. 05-12-19 S/P sinus surgery Status post total replacement of hip right 2014 Family History Grandmother Diabetes Heart disease Father Hypertension Cancer Brother Hypertension Social History Smoking Status: Current every day smoker Tobacco Type: Cigarettes Cigarettes Per Day: 10; Second Hand Exposure: No; Do You Dip or Chew Tobacco: No; Hx Alcohol Use: Yes Alcohol type: other Alcohol Intake Frequency Comment: 3 glasses wine daily Hx Substance Use: No Preferred Language: Faroese Communication Ability: Effective Visual Impairment: No Limitations Brass Buffer Required: No Beliefs That Will Affect Care: None marital status: Current Living Situation: Spouse Other Information That Helps Us Care for You: No Feels Safe at Home: Yes Safety Concerns: Feels Safe At This Time Assistive Devices: None Review of Systems Review of Systems: All systems reviewed & are unremarkable except as noted in HPI & below Physical Exam Constitutional: WD/WN, vitals as above Respiratory: normal respiratory effort, lungs clear to auscultation Cardiovascular: RRR, no murmur, no edema Gastrointestinal (Abdomen): mild epigastric tenderness, no guarding, soft, normal bowel sounds. Psychiatric: Orientation: alert and oriented x 3 Affect: euthymic affect Results & Data Vital Signs (Past 12 Hours) Vital Signs Temp Pulse Pulse Resp BP BP Pulse Ox 09/28/23 08:34 98.1 F 73 17 148/69 H 96 09/28/23 07:45 09/28/23 07:25 68 09/28/23 03:29 98.6 F 68 16 154/69 H 94 09/28/23 00:08 173/63 H 09/27/23 22:47 84 09/27/23 22:21 97.9 F 85 18 190/72 H 94 09/27/23 22:13 166/67 H O2 Del Method 09/28/23 08:34 Room Air 09/28/23 07:45 Room Air 09/28/23 07:25 09/28/23 03:29 Room Air 09/28/23 00:08 09/27/23 22:47 09/27/23 22:21 Room Air 09/27/23 22:13 Coding Level of Care Code 16164 IN/OBS CONSULT LVL 3,45M Diagnoses Acute pancreatitis K85.20 Acute pancreatitis complication: unspecified Pancreatitis type: alcohol induced Alcohol use disorder F10.90 (1) Acute pancreatitis Acute pancreatitis complication: unspecified Pancreatitis type: alcohol induced Qualified Code(s): K85.20 - Alcohol induced acute pancreatitis without necrosis or infection
--- NOTE | 2023-09-28 17:18 | Hospitalist Progress Note ---
Date of Service September 28, 2023 Assessment & Plan (1) Pancreatitis: (2) Alcohol use disorder: (3) Hypertension: (4) GERD (gastroesophageal reflux disease): (5) Tobacco use disorder: Plan: Ms. Nuno is a 53 year old woman with history prediatebetes, alochol use, tobacco use, GERD/barretts who is admitted for management of pancreatitis. Patient is improving, but still with some epigastric tenderness #Acute Pancreatitis .Focal heterogeneity of the uncinate process pancreas may be related to the acute pancreatitis. An underlying pancreatic mass could appear similarly and evaluation could be [place] [address] on admission, AST 48, Alk phos 130, ALT 44 Lipase down trending - Keep NPO, continue LR at 125ml/hr - Cont IV pepcid BID - Allow morphine IV for pain control - Encourage alcohol cessation GI consulted: Continue current therapy and supportive care Will need outpatient EUS with [facility] who is her primary GI team #Alcohol use - Withdrawal protocol ordered as pt typically drinks 6pack hard seltzer daily, last drink was 4 pm on 09/25 - Gabapentin withdrawal protocol as above #Prediabetes -lipid panel wnl, A1C 09/27 6.3 #HTN - BP elevated at 209/91, not on antihypertensive medications at baseline, previously on lisinopril but developed a cough (taken off years ago)-- may require antihypertensives upon discharge - Remains elevated, start low dose amlodipine #Tobacco use - Cessation encouraged, currently smokes 1/2 ppd - nicotine patch refused, she has Nicorette gum with her #GERD #Barretts Esophagus- - Hx of EGD and Cscope, followed with [facility], reports barretts previously was cleared. - Consider GI consult, will need set up with GI as outpatient - At home takes protonix 40 mg daily -- use famotidine IV here DVT ppx: teds, scds Lines: 1 PIV Diet: NPO, adavnce to CLD as tolerate CODE: FULL Admission and Anticipated Discharge Date Admission Date: September 27, 2023 Subjective NAEO Reports mild abdominal tenderness, but that nausea has subsided Denies any chest pain fevers or chills Reports may feel better and will want to eat later, but not yet Physical Exam Constitutional: WD/WN, vitals as above Respiratory: normal respiratory effort, lungs clear to auscultation Cardiovascular: RRR, no murmur, no edema Gastrointestinal (Abdomen): mild epigastric tenderness, otherwise soft Results & Data Results & Data Vital Signs (Past 12 Hours) Vital Signs Temp Pulse Pulse Resp BP Pulse Ox O2 Del Method 09/28/23 17:00 37.1 C 65 18 177/76 H 96 Room Air 09/28/23 16:33 52 L 09/28/23 13:25 36.9 C 54 L 17 154/70 H 96 Room Air 09/28/23 08:34 36.7 C 73 17 148/69 H 96 Room Air 09/28/23 07:45 Room Air 09/28/23 07:25 68
[2023-09-28] MEDS: amLODIPine BESYLATE 5 MG TAB PO ONE (17:53)
[2023-09-29 05:58] LABS: Hematocrit (blood only) 32.1 % (37.0-47.0); Hemoglobin 10.4 g/dl (12.0-16.0); Mean Corpuscular Hemoglobin 28.2 pg (25.0-34.0); Mean Corpuscular Hgb Conc 32.4 g/dL (32.0-36.0); Mean Platelet Volume 10.7 fL (9.4-12.4); Platelet Count 167 K/uL (130-400); RDW Coefficient of Variation 14.6 % (11.5-14.5); RDW Standard Deviation 46.4 fL (36.4-46.3); Red Blood Count 3.69 M/uL (4.20-5.40); White Blood Count 5.87 K/ul (4.8-10.8)
[2023-09-29 06:15] LABS: BUN Creatinine Ratio 8.3 (10-20); Calcium 9.4 mg/dl (8.6-10.3); Creatinine Clr Calc Pharmacy 96.5 ml/min; Est GFR (African American) 119.8 ml/min; Est GFR (Non-African American) 103.3 ml/min; Magnesium 1.7 mg/dl (1.7-2.4); Phosphorus 3.9 mg/dl (2.5-4.9)
[2023-09-29 06:35] LABS: Ferritin 11.3 ng/ml (8-388)
[2023-09-29 06:41] LABS: Folate (Folic Acid),Ser orPlas > 22.30 ng/ml (>5.38)
[2023-09-29 06:42] LABS: Vitamin B12 433 pg/ml (180-914)
[2023-09-29] MEDS: amLODIPine BESYLATE 5 MG TAB PO SCH (08:41)
--- NOTE | 2023-09-29 15:28 | Discharge Summary ---
Discharge Summary Date of Service September 29, 2023 Notes For Next Care Provider Patient reports not sure if she wishes to continue follow up with [facility] and may switch to [facility] Medication Changes From Visit Amlodipine 5 mg daily 600mg gabapentin x 4 more doses Ferrous gluconate 1 tab daily Admission HPI Per Admitting Provider This is a 53 yo F with PMHx of Barretts esophagus, GERD, prediabetes, hx HTN, alcohol use, tobacco use with 1/2 ppd, HTN previously on Lisinopril but taken off due to cough. Pt presents with 1 week of worsening abdominal pain. She ntoes few months ago had generalized abdominal pain and stopped drinking vodka at that time. She is still drinking white claw hard seltzer (#6) daily. Pt states it has been having waxing and waning abdominal pain and into her back. She has been doing manual labor with flower beds recently and thought maybe it was due to such. Pt admits to nausea but has been vomiting today. She denies fever, but admits to sweats and chills. No diarrhea. Her BP has been ok at home, and checks it at home routinely. Last night she took 2 ibuprofen to help with pain. Current pain is 6/10 Pt last drank alcohol yesterday at 4 pm, routinely drinks white claw 6 pack daily, and one shot of vodka yesterday. Family Hx: Father - adenocarcinoma lung cancer Surgical Hx: R hip repacement Cholecystectomy Social Hx: 1/2 pack cigarettes daily, alcohol use as above, denies illicit drug use Admission Exam Per Admitting Provider General: awake, alert, no apparent distress, thin white female, BMI 21 Head: Normocephalic, atraumatic ENT: PERRL, EOMI, no pharyngeal exudate, mucous membranes moist Chest: Clear to auscultation, on room air, no adventitious breath sounds Cardiac: Regular rate and rhythm, no murmur, no JVD, normal peripheral pulses, good capillary refill Abdominal: NABS x 4 quadrants, soft, nondistended, +epigastric tenderness with palpation, no rebound or guarding Extremities: Normal inspection, no peripheral edema or erythema, calfs nontender to palpation Psych: Normal mood and affect Neuro: AAO x 3, strength intact bilaterally and rated 5/5, no motor deficits, speech is clear, no peripheral sensory deficits Principal Dx & Hospital Course #1 = Principal Diagnosis (1) Pancreatitis: (2) Alcohol use disorder: (3) Hypertension: (4) GERD (gastroesophageal reflux disease): (5) Tobacco use disorder: Ms. Nuno is a 53 year old woman with history prediatebetes, alochol use, tobacco use, GERD/barretts who is admitted for management of pancreatitis. Patient improved and tolerated diet advancement. Labs notable for iron deficiency, patient wishes to started OP iron supplement #Acute Pancreatitis #Abnormal CT (?pancreatic lesions) .Focal heterogeneity of the uncinate process pancreas may be related to the acute pancreatitis. An underlying pancreatic mass could appear similarly and evaluation could [place] [address] on admission, AST 48, Alk phos 130, ALT 44 Lipase down trending - Keep NPO, continue LR at 125ml/hr - Cont IV pepcid BID - Allow morphine IV for pain control - Encourage alcohol cessation GI consulted: Continue current therapy and supportive care Will [facility] or whom ever patient decides to establish with and follow up #Alcohol use - Withdrawal protocol ordered as pt typically drinks 6pack hard seltzer daily, last drink was 4 pm on 09/25 - Gabapentin withdrawal protocol as above #Prediabetes -lipid panel wnl, A1C 09/27 6.3 #HTN - BP elevated at 209/91, not on antihypertensive medications at baseline, previously on lisinopril but developed a cough (taken off years ago)-- may require antihypertensives upon discharge - Remains elevated, start low dose amlodipine #Tobacco use - Cessation encouraged, currently smokes 1/2 ppd - nicotine patch refused, she has Nicorette gum with her #GERD #Barretts Esophagus- - Hx of EGD and Cscope, followed with [facility], reports barretts previously was cleared. - Consider GI consult, will need set up with GI as outpatient - At home takes Protonix 40 mg daily, resume #Iron deficiency Anemia -Start PO replacement Discharge Exam Constitutional WD/WN, vitals as above Respiratory normal respiratory effort, lungs clear to auscultation Cardiovascular RRR, no murmur, no edema Gastrointestinal (Abdomen) normal bowel sounds, soft, nontender, no hepatosplenomegaly Updated Medication List Medication Instructions Recorded Confirmed Type lactase 3,000 unit tablet (Lactaid) 3,000 unit PO AC PRN dairy 09/27/23 09/27/23 History consumption pantoprazole 40 mg tablet,delayed 40 mg PO QAM 09/27/23 09/27/23 History release amlodipine 5 mg tablet (Norvasc) 5 mg PO QAM #30 tabs 09/29/23 Rx ferrous gluconate 324 mg (38 mg 324 mg PO DAILY #30 tabs 09/29/23 Rx iron) tablet gabapentin 600 mg tablet 600 mg PO Q12H #4 tabs 09/29/23 Rx Hospital Stay Data Consultations 09/27/23 18:13 ED Decision to Admit Stat 09/27/23 22:38 Consult Gastroenterology Routine Diagnostic Imagining Performed 09/27/23 14:43 CT Abd and Pelvis [CT abd pelvis IV con only] Stat Pending Results Patient Have Any Pending Studies at Discharge: No Discharge Instructions Given to Patient (Per Discharging Provider) You were admitted for abdominal pain and found to have pancreatitis You were treated with bowel rest and IV fluids. Your imaging noted an area on your pancreas that may be extenuated due to the inflammation from pancreatitis, however, the gastroenterology team would like you to follow up with GI and further evaluation. You tolerated diet well and should continue alcohol abstinence. You were noted to be hypertensive, you were started on low dose amlodipine 5mg daily. Please continue daily and follow up with PCP. You were started on a Gabapentin taper to help with any signs of alcohol withdrawal. Please take your next dose this evening, then 1 tablet two times tomorrow, followed by final dose on Sunday. Please contact [facility] GI or [facility] based upon your preference with whom you would like to continue your GI care based upon our discussion at bedside. Total Time Total Time Spent Total Time Spent (In Minutes): 35
[2023-09-30] MEDS ORDERED: GABAPENTIN 600 MG TAB PO SCH
[2023-10-01] MEDS ORDERED: GABAPENTIN 600 MG TAB PO SCH (12:00)
== END 2023-09-29 14:37 | disposition home or self-care (01) | DRG 440 ==
LOC: ED 12:58 → 2N 18:17 → SUATTDRO 18:17 → 2N 22:12